=== PATIENT | female | born 1935 | race Caucasian/White ===

== ENCOUNTER 2019-07-20 15:48 | Inpatient (IN) | payer MEDICARE ==
[~2019-07-20] VITALS: Ht 157.5 cm; Wt 65.2 kg
[2019-07-20 16:23] LABS: BASOPHILS % (AUTO) 0.4 % (0.0-5.0); EOSINOPHILS % (AUTO) 0.5 % (0.0-8.0); HEMATOCRIT 45.6 % (36-48); LYMPHOCYTES % (AUTO) 20.5 % (21.0-51.0); MEAN CORPUSCULAR HEMOGLOBIN 29.1 pg (27.0-33.0); MEAN CORPUSCULAR HGB CONC 32.5 g/dL (32.0-36.0); MEAN CORPUSCULAR VOLUME 89.6 fL (79-99); MONOCYTES % (AUTO) 9.5 % (3.0-13.0); NEUTROPHILS % (AUTO) 67.1 % (40.0-77.0); PLATELET COUNT (AUTO) 307 K/uL (130-400); RED BLOOD CELL COUNT(AUTO) 5.09 MIL/uL (4.00-5.50); RED CELL DISTRIBUTION WIDTH 13.8 % (11.0-15.5); WHITE BLOOD COUNT (AUTO) 14.2 K/uL (4.8-10.8)
[2019-07-20 16:32] LABS: POTASSIUM 4.6 mmol/L (3.5-5.1)
[2019-07-20 16:33] LABS: INR 0.99 (0.85-1.15); PARTIAL THROMBOPLASTIN TIME 25.3 SEC (26.3-35.5); PROTHROMBIN TIME 10.7 SEC (9.6-11.6)
[2019-07-20 16:36] LABS: ALBUMIN 3.8 g/dL (3.5-5.0); BILIRUBIN,TOTAL 0.4 mg/dL (0.2-1.0); TOTAL PROTEIN, SERUM 7.2 g/dL (6.0-8.3)
[2019-07-20] MEDS ORDERED: SODIUM CHLORIDE 0.9% 1000ML 1,000 ML IV ONE ×2 (18:03→20:41)
[2019-07-20] MEDS ORDERED: CLINDAMYCIN 600 MG/D5% WATER 50 ML IV ONE (18:54)
[2019-07-20] MEDS: CLINDAMYCIN 600 MG/D5% WATER 50 ML IV SCH (20:00)
[2019-07-20] MEDS ORDERED: DEXTROSE 50%-WATER 50 ML DISP.SYRIN IV PRN (20:00)
[2019-07-20] MEDS ORDERED: KETOROLAC TROMETHAMINE 15MG/ML IV PRN (20:00)
[2019-07-20] MEDS ORDERED: VANCOMYCIN 1GM+NS 250ML 250 ML IV SCH (20:00)
[2019-07-20] MEDS ORDERED: GLUCAGON 1MG KIT 1 MG ML IM PRN (20:00)
[2019-07-20] MEDS ORDERED: ONDANSETRON HCL 4 MG/2 ML VIAL IV PRN (20:00)
[2019-07-20] MEDS ORDERED: VANCOMYCIN 1GM+NS 250ML 250 ML IV ONE (20:39)
[2019-07-20] MEDS ORDERED: FAMOTIDINE/PF 20 MG/2 ML VIAL IV ONE (20:40)
[2019-07-20] MEDS ORDERED: FAMOTIDINE/PF 20 MG/2 ML VIAL IV SCH (21:00)
[2019-07-21] MEDS ORDERED: SODIUM CHLORIDE 0.9% 500ML 500 ML IV ONE (01:11)
[2019-07-21 01:38] LABS: APPEARANCE,URINE Cloudy (CLEAR); BILIRUBIN,URINE Moderate (NEGATIVE); COLOR,URINE Dark Yellow (YELLOW); GLUCOSE, URINE (UA) Negative (NEGATIVE); KETONES,URINE Trace mg/dL (NEGATIVE); LEUKOCYTE ESTERASE ,URINE Trace (NEGATIVE); NITRATE,URINE Negative (NEGATIVE); OCCULT BLOOD,URINE Negative (NEGATIVE); PROTEIN,URINE POS 1+ mg/dL (NEGATIVE)
[2019-07-21 01:45] LABS: BACTERIA,URINE None Seen /HPF (None Seen); MUCUS,URINE Moderate LPF (None Seen); RBC,URINE None Seen /HPF (0-1); SQUAMOUS EPITHELIAL CELL,UR Rare /HPF (0-2); WBC,URINE None Seen /HPF (0-1)
[2019-07-21] MEDS: CLINDAMYCIN 600 MG/D5% WATER 50 ML IV SCH ×4 (02:00→20:15)
[2019-07-21] MEDS ORDERED: CLINDAMYCIN 600 MG/D5% WATER 50 ML IV ONE (02:15)
--- NOTE | 2019-07-21 02:30 | NUR ---
ADMISSION PATIENT TRANSFERRED FROM ER INTO ROOM 418 VIA STRETCHER. AWAKE, ALERT AND VERBALLY RESPONSIVE, ORIENTED WITH PERIODS OF FORGETFULNESS, NO C/O PAIN OR DISCOMFORT AT THIS TIME. VS ASSESSED UPON TRANSFER, PHILLIPS CATHETER #16 ROMANIAN DRAINING YELLOW URINE, IV 22G TO LEFT AC RUNNING NS AT 50ML/HR AND CLINDAMYCIN AT THIS TIME, NO REDNESS OR TENDERNESS TO SITE. WAFFLE MATTRESS PLACED ON PATIENT FOR WOUND TO SACRAL AREA. TELEMETRY PLACED. PT ORIENTED TO ROOM, CALL DAVIES WITHIN REACH, BED IN LOWEST POSITION, BED ALARM ON AND FUNCTIONING. WILL CONTINUE TO MONITOR. Addendum: 07/21/19 at 0319 by LIVAN QUILES RN Amended: Links added.
[2019-07-21 02:40] VITALS: BP 101/58
[2019-07-21] MEDS: SODIUM CHLORIDE 0.9% 1000ML 1,000 ML IV SCH ×2 (03:02→20:15)
[2019-07-21] MEDS ORDERED: METF-444 PO (03:54)
[2019-07-21] MEDS ORDERED: ROPI0.257 PO (03:54)
[2019-07-21] MEDS ORDERED: CHOL200012 PO (03:54)
[2019-07-21] MEDS ORDERED: OMEP20CA12 PO (03:54)
[2019-07-21] MEDS ORDERED: CYAN100099 PO (03:54)
[2019-07-21] MEDS ORDERED: LEVO75TA10 PO (03:54)
[2019-07-21] MEDS ORDERED: METO-408 PO (03:54)
[2019-07-21] MEDS ORDERED: AMIO200T6 PO (03:54)
[2019-07-21] MEDS ORDERED: FOLI0.8C PO (03:54)
[2019-07-21] MEDS ORDERED: GABA-531 PO (03:54)
[2019-07-21] MEDS ORDERED: CARB-38 PO (03:54)
[2019-07-21] MEDS: INSULIN HUMULIN R 100 UNIT/ML 3ML SQ SCH ×4 (06:00→18:00)
[2019-07-21 06:02] LABS: BASOPHILS % (AUTO) 0.5 % (0.0-5.0); EOSINOPHILS % (AUTO) 0.6 % (0.0-8.0); HEMATOCRIT 39.4 % (36-48); LYMPHOCYTES % (AUTO) 25.2 % (21.0-51.0); MEAN CORPUSCULAR HEMOGLOBIN 28.5 pg (27.0-33.0); MEAN CORPUSCULAR VOLUME 89.1 fL (79-99); MONOCYTES % (AUTO) 11.6 % (3.0-13.0); NEUTROPHILS % (AUTO) 60.2 % (40.0-77.0); PLATELET COUNT (AUTO) 264 K/uL (130-400); RED BLOOD CELL COUNT(AUTO) 4.42 MIL/uL (4.00-5.50); RED CELL DISTRIBUTION WIDTH 14.2 % (11.0-15.5); WHITE BLOOD COUNT (AUTO) 12.2 K/uL (4.8-10.8)
[2019-07-21 06:15] LABS: ALBUMIN 3.2 g/dL (3.5-5.0); BILIRUBIN,TOTAL 0.5 mg/dL (0.2-1.0); CREATININE 0.9 mg/dL (0.5-1.5); POTASSIUM 4.2 mmol/L (3.5-5.1); TOTAL PROTEIN, SERUM 6.5 g/dL (6.0-8.3)
[2019-07-21 06:31] LABS: B-TYPE NATRIURETIC PEPTIDE 1040 pg/mL (0-100)
[2019-07-21 08:00] VITALS: BP 114/73
[2019-07-21] MEDS: ASPIRIN 81MG TAB.CHEW PO SCH (09:00)
[2019-07-21] MEDS: FAMOTIDINE/PF 20 MG/2 ML VIAL IV SCH (09:00)
[2019-07-21] MEDS: ENOXAPARIN SODIUM 30 MG/0.3 ML SQ SCH (09:00)
--- NOTE | 2019-07-21 10:32 | NUR ---
INITIAL SW spoke with patient's spouse, Paresh Beasley, [phone]. No home services. DME: BPM, glucometer (no insulin), cane, walker with seat, wheelchair, transport chair, shower chair, nebulizer. Patient needed assistance with ADL's and did not drive prior to hospitalization as per spouse. PCP is JONATHAN Paris. Pharmacy is [facility] located in [place]. DCP is home. Addendum: 07/21/19 at 1040 by KASIE DIAZ SS Amended: Links added.
[2019-07-21 11:00] VITALS: BP 117/71
--- NOTE | 2019-07-21 11:04 | NUR ---
DYSPHAGIA EVAL COMPLETED. S/S OF ASPIRATION. RECOMMEND REGULAR SOLIDS, THIN LIQUIDS, AND PILLS WHOLE WITH LIQUIDS. Addendum: 07/21/[address]ISON HARRELL Amended: Links added.
[2019-07-21 16:00] VITALS: BP 150/88
[2019-07-21] MEDS ORDERED: COMPOUND IV MISC 1 EACH IVSOLN MISC PRN (16:00)
--- NOTE | 2019-07-21 16:14 | NUR ---
[facility] CONSULT PATIENT ASSESSED REQUESTED: PATIENT PRESENTS WITH STAGE II PRESSURE ULCER TO SACRUM; [facility] RECCOMENDATIONS SUBMITTED Addendum: 07/21/19 at 1615 by ELIANA JONES LVN LVN W Amended: Links added.
[2019-07-21] MEDS: CARBIDOPA-LEVODOPA 25-100 TAB PO SCH (18:20)
[2019-07-21] MEDS: ROPINIROLE HCL 0.25 MG TABLET PO SCH (18:20)
[2019-07-21 19:00] VITALS: BP 129/73
[2019-07-21] MEDS: LEVETIRACETAM 500 MG in SODIUM CHLORIDE 0.9% 100 ML IV SCH (20:16)
[2019-07-21 23:00] VITALS: BP 128/76
[2019-07-22 03:00] VITALS: BP 126/72
[2019-07-22] MEDS: CLINDAMYCIN 600 MG/D5% WATER 50 ML IV SCH ×4 (03:07→22:26)
[2019-07-22] MEDS: CARBIDOPA-LEVODOPA 25-100 TAB PO SCH ×4 (03:07→22:26)
[2019-07-22] MEDS: INSULIN HUMULIN R 100 UNIT/ML 3ML SQ SCH ×5 (06:00→21:00)
[2019-07-22] MEDS: LEVETIRACETAM 500 MG in SODIUM CHLORIDE 0.9% 100 ML IV SCH ×2 (06:17→16:36)
[2019-07-22 07:23] VITALS: BP 136/76
[2019-07-22] MEDS: SODIUM CHLORIDE 0.9% 1000ML 1,000 ML IV SCH ×2 (09:36→11:22)
[2019-07-22] MEDS: ASPIRIN 81MG TAB.CHEW PO SCH (09:38)
[2019-07-22] MEDS: FAMOTIDINE/PF 20 MG/2 ML VIAL IV SCH (09:41)
[2019-07-22] MEDS: ENOXAPARIN SODIUM 30 MG/0.3 ML SQ SCH (09:42)
[2019-07-22] MEDS: HONEY 1 APPL/ML TUBE TP SCH (09:58)
--- NOTE | 2019-07-22 10:00 | NUR ---
FOLLOW UP COMPLETED. PATIENT RECENTLY EVALUATED AND RECOMMENDED REGULAR DIET, THIN LIQUIDS, AND PILLS WHOLE WITH LIQUIDS. RESPIRATORY THERAPY ASSISTANT COORDINATED WITH NURSE COELHO TO FOLLOW UP. NURSE COELHO ADMINISTERED PILLS WHOLE WITH THIN LIQUIDS BY STRAW AND NO S/S OF ASPIRATION WERE OBSERVED. Addendum: 07/22/[address]ISON HARRELL Amended: Links added.
[2019-07-22 11:26] VITALS: BP 104/48
--- NOTE | 2019-07-22 12:56 | NUR ---
RECEIVED CALL FROM DR. HILARIO. CONFIRMED MEDICATION REGIMEN AND CURRENT STATUS WITH MD. QUESTIONS ANSWERED, VERBALIZED UNDERSTANDING. NO NEW ORDERS RECEIVED AT THIS TIME.
[2019-07-22 15:17] VITALS: BP 111/68
[2019-07-22] MEDS: ROPINIROLE HCL 0.25 MG TABLET PO SCH (16:36)
[2019-07-22 19:00] VITALS: BP 114/58
--- NOTE | 2019-07-22 19:03 | NUR ---
RECEIVED CALL FROM ASHWINI DALE PT.'S DAUGHTER. QUESTIONS ANSWERED AND UPDATED ON STATUS, VERBALIZED UNDERSTANDING.
[2019-07-22 23:00] VITALS: BP 125/73
[2019-07-23 03:00] VITALS: BP 120/70
[2019-07-23] MEDS: CLINDAMYCIN 600 MG/D5% WATER 50 ML IV SCH ×4 (04:41→22:23)
[2019-07-23] MEDS: ROPINIROLE HCL 0.25 MG TABLET PO SCH ×2 (05:43→16:28)
[2019-07-23] MEDS: LEVETIRACETAM 500 MG in SODIUM CHLORIDE 0.9% 100 ML IV SCH ×2 (05:43→16:28)
[2019-07-23] MEDS: INSULIN HUMULIN R 100 UNIT/ML 3ML SQ SCH ×4 (07:30→21:00)
--- NOTE | 2019-07-23 08:50 | NUR ---
PT STATES HER D.O.B IS [birth year] NOT [birth year].
[2019-07-23] MEDS: ASPIRIN 81MG TAB.CHEW PO SCH (09:04)
[2019-07-23] MEDS: FAMOTIDINE/PF 20 MG/2 ML VIAL IV SCH (09:04)
[2019-07-23] MEDS: CARBIDOPA-LEVODOPA 25-100 TAB PO SCH ×2 (09:04→16:28)
[2019-07-23] MEDS: SODIUM CHLORIDE 0.9% 1000ML 1,000 ML IV SCH (09:05)
[2019-07-23] MEDS: ENOXAPARIN SODIUM 30 MG/0.3 ML SQ SCH (09:07)
[2019-07-23] MEDS: HONEY 1 APPL/ML TUBE TP SCH (09:11)
--- NOTE | 2019-07-23 09:15 | NUR ---
RECEIVED CALL FROM PT.'S DAUGHTER, ASHWINI DALE; QUESTIONS ANSWERED AND UPDATED ON PT.'S STATUS, VERBALIZED UNDERSTANDING.
[2019-07-23 10:03] VITALS: BP 138/75
[2019-07-23 11:35] VITALS: BP 102/63
--- NOTE | 2019-07-23 14:46 | NUR ---
DISCUSSED AFTERCARE WITH DAUGHTER PHYLLIS CHAD NOTED PHONE NUMBERS IN CHART - PAGES STATES CALL PHYLLIS FIRST- CALL TO PHYLLIS WHO STATED SISTER ASHWINI ON [address] IN [place] WAS THE ONE TO CALL RE PATIENT'S AFTERCARE BUT HAD LEFT PHYLLIS'S NUMBER BECAUSE SHE WAS OVERWHELMED WITH THE QUESTIONS SHE WAS BEING ASKED ABOUT PATIENT. ADDED ON LAST HOSPITAL ADMISSION PT HAD HH/PTx SET UP AT DISCHARGE THROUGH [facility]- WOULD PREFER THAT. STATES PATIENT NOT VERY MOBILE AND BECOMING LESS SO. PT EVAL PENDING. PT W SACRAL ULCER AND VERY DIMINISHED MOBILITY WILL OBTAIN PT ORDER AND FOLLOW UP IN AM . Addendum: 07/23/19 at 1452 by MARION BLACKBURN RN CM Amended: Links added.
[2019-07-23 15:54] VITALS: BP 137/85
[2019-07-23 19:07] VITALS: BP 114/74
[2019-07-23] MEDS ORDERED: MAGNESIUM HYDROXIDE 30 ML/UDCUP PO PRN (20:30)
[2019-07-23 23:20] VITALS: BP 144/89
[2019-07-24] MEDS: CARBIDOPA-LEVODOPA 25-100 TAB PO SCH ×2 (02:47→07:30)
[2019-07-24 03:26] VITALS: BP 152/74
[2019-07-24] MEDS: SODIUM CHLORIDE 0.9% 1000ML 1,000 ML IV SCH (04:00)
[2019-07-24 04:13] LABS: HEMATOCRIT 33.2 % (36-48); MEAN CORPUSCULAR HEMOGLOBIN 28.8 pg (27.0-33.0); MEAN CORPUSCULAR HGB CONC 33.1 g/dL (32.0-36.0); MEAN CORPUSCULAR VOLUME 86.9 fL (79-99); PLATELET COUNT (AUTO) 237 K/uL (130-400); RED BLOOD CELL COUNT(AUTO) 3.82 MIL/uL (4.00-5.50); WHITE BLOOD COUNT (AUTO) 7.3 K/uL (4.8-10.8)
[2019-07-24 04:20] LABS: CREATININE 0.7 mg/dL (0.5-1.5); POTASSIUM 3.4 mmol/L (3.5-5.1)
[2019-07-24 04:23] LABS: BAND NEUTROPHILS % (MANUAL) 3 % (0-2); LYMPHOCYTES % (MANUAL) 29 % (22-44); MONOCYTES % (MANUAL) 9 % (2-9); SEGMENTED NEUTROPHILS % 59 % (40-70)
[2019-07-24 04:24] LABS: MAN.DIFF COMMENT-IMPRESSION MANUAL DIFFERENTIAL; PLATELET MORPHOLOGY COMMENT ADEQUATE
[2019-07-24] MEDS: CLINDAMYCIN 600 MG/D5% WATER 50 ML IV SCH ×3 (05:07→13:46)
[2019-07-24] MEDS: ROPINIROLE HCL 0.25 MG TABLET PO SCH (05:25)
[2019-07-24] MEDS: LEVETIRACETAM 500 MG in SODIUM CHLORIDE 0.9% 100 ML IV SCH (05:52)
[2019-07-24] MEDS: INSULIN HUMULIN R 100 UNIT/ML 3ML SQ SCH ×2 (05:59→11:30)
[2019-07-24] MEDS: FAMOTIDINE/PF 20 MG/2 ML VIAL IV SCH (07:27)
[2019-07-24] MEDS: ASPIRIN 81MG TAB.CHEW PO SCH (07:31)
[2019-07-24] MEDS: HONEY 1 APPL/ML TUBE TP SCH (07:31)
[2019-07-24] MEDS: ENOXAPARIN SODIUM 30 MG/0.3 ML SQ SCH (07:31)
[2019-07-24 07:51] VITALS: BP 126/76
[2019-07-24] MEDS ORDERED: POTASSIUM CHLORIDE 20 MEQ ERTAB PO SCH (10:00)
[2019-07-24 11:46] VITALS: BP 125/73
[2019-07-24] MEDS ORDERED: LEVE-43 PO (14:30)
[2019-07-24] MEDS ORDERED: CLIN300C9 PO (14:30)
--- NOTE | 2019-07-24 15:30 | NUR ---
[id number] patient signed IM Letter, I faxed IM Letter to [phone] and placed in chart under consent tab. Patient was also given BPCI Letter.
--- NOTE | 2019-07-24 15:36 | NUR ---
HOME HEALTH SPOKE TO DAUGHTER REGARDING HOME HEALTH. AT THIS TIME THEY DO NOT WANT HOME HEALTH TOO MANY STRANGERS COMING INTO THE HOUSE. IF THEY NEED IT WILL GO TO [facility] TO SET UP. SAID CAN PHOTOSTATIC COPY MAKER PATIENT NO AMBULANCE NEEDED. JUST NEED TO BE NOTIFIED OF DC TIME SO THAT THEY CAN PHOTOSTATIC COPY MAKER. Addendum: 07/24/19 at 1538 by GARY PISANO RN CM Amended: Links added.
[2019-07-24 15:47] VITALS: BP 127/75
--- NOTE | 2019-07-24 16:54 | NUR ---
DC TO HOME PT GIVEN DC INSTRUCTIONS. PIV REMOVED CATH TIP INTACT, TELE PACK REMOVED. AGREE TO TAKE MEDS ORDERED. ALL QUESTIONS ANSWERED. DOWN VIA WC TO VEHICLE.
[2019-07-24] MEDS ORDERED: LEVETIRACETAM 500 MG TABLET PO SCH (21:00)
== END 2019-07-24 16:53 | disposition home or self-care (01) | DRG 74 ==
LOC: EDH 15:48 → EDHIP 19:46 → 4CH 07-21 02:21 → 2AH 07-21 19:36
PROVIDERS: ADMIT Internal Medicine; ATTEND Internal Medicine
DX: G90.8 Other disorders of autonomic nervous system (principal); E11.9 Type 2 diabetes mellitus without complications; R56.9 Unspecified convulsions; G20 Parkinson's disease; I10 Essential (primary) hypertension; I44.7 Left bundle-branch block, unspecified; L89.152 Pressure ulcer of sacral region, stage 2; Z79.4 Long term (current) use of insulin; Z88.8 Allergy status to other drugs, medicaments and biological substances
CPT/HCPCS: 36415; 70450; 71045; 74176; 80048; 80053; 80061; 81001; 82550; 82948; 83036; 83605; 83880; 84443; 84484; 85025; 85610; 85730; 87040; 87088; 87804; 92610; 93005; 93306; 97039; G0378; J1650; J1953; J2405; J3370; J3490; J7030; J7040